=== PATIENT | male | born 1985 | race American Indian/Alaskan Native ===

== ENCOUNTER 2016-10-23 18:44 | Emergency (ER) | payer OTHER ==
[2016-10-23 19:35] VITALS: BP 117/68
[2016-10-23] MEDS ORDERED: MOTRIN PO ONE ×2 (20:35→20:38)
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
== END 2016-10-23 23:05 | disposition home or self-care (01) ==
LOC: ED 18:44
DX: S39.012A Strain of muscle, fascia and tendon of lower back, initial encounter (principal); V49.49XA Driver injured in collision with other motor vehicles in traffic accident, initial encounter; X58.XXXA Exposure to other specified factors, initial encounter; Y93.9 Activity, unspecified; Y92.9 Unspecified place or not applicable; Y99.9 Unspecified external cause status
CPT/HCPCS: 99282

== ENCOUNTER 2019-06-21 17:11 | Emergency (ER) | payer SELFPAY ==
[2019-06-21 17:43] LABS: Basophils % (Auto) 0.7 % (0.0-1.8); Eosinophils % (Auto) 0.5 % (0.0-4.3); Hematocrit 45.3 % (35.5-45.6); Hemoglobin 15.5 gm/dl (11.8-15.2); Lymphocytes # (Auto) 1.1 K/mm3 (1.2-5.4); Lymphocytes % (Auto) 19.4 % (13.4-35.0); Mean Corpuscular HGB Conc 34 % (32-34); Mean Corpuscular Volume 95 fl (84-94); Monocytes # (Auto) 0.3 K/mm3 (0.0-0.8); Monocytes % (Auto) 5.1 % (0.0-7.3); Platelet Count 198 K/mm3 (140-440); Red Blood Count 4.76 M/mm3 (3.65-5.03); Red Cell Distribution Width 12.7 % (13.2-15.2)
[2019-06-21 18:04] LABS: Alanine Aminotransferase 20 units/L (7-56); Albumin 4.6 g/dL (3.9-5); BUN/Creatinine Ratio 10; Blood Urea Nitrogen 8 mg/dL (9-20); Calcium 9.6 mg/dL (8.4-10.2); Hemolysis Index 34
[2019-06-21 18:27] LABS: Bilirubin,Urine NEG (Negative); Blood,Urine SM (Negative); Color,Urine Yellow (Yellow); Protein,Urine <15 mg/dL mg/dL (Negative); Urobilinogen,Urine < 2.0 mg/dL (<2.0)
[2019-06-21 18:36] LABS: WBC,Urine < 1.0 /HPF (0.0-6.0)
[2019-06-21] MEDS ORDERED: predniSONE 20 MG TAB PO ONE (21:23)
[2019-06-21] MEDS ORDERED: FAMOTIDINE 20 MG TAB PO ONE (21:23)
[2019-06-21] MEDS ORDERED: LIDOCAINE VISCOUS 2% 15 ML ORAL LIQD PO ONE (21:23)
[2019-06-21] MEDS ORDERED: ALUM-MAG HYDROXIDE-SIMETHICONE 200-200-20MG/5ML ORAL LIQD 30 ML PO ONE (21:23)
--- NOTE | 2019-06-21 21:45 | Emergency Department Report ---
ED General Adult HPI - General Chief complaint: Abdominal Pain Stated complaint: CHEST PAIN Source: patient Mode of arrival: Ambulatory Limitations: No Limitations - History of Present Illness Initial comments: Patient is 34-year-old -[place] male with no past medical history who presents to the ED with complaint of acute onset persistent nasal and sinus congestion, sneezing, mild epigastric discomfort, mild dry cough and mild sore throat for the last 1 week. Patient denies fever, chills, nausea, vomiting, diarrhea, abdominal pain, dysuria, urinary frequency and urgency, chest pain or shortness of breath or change in vision. MD Complaint: Sneezing; cough, nasal and sinus congestion; epigastric discomfort -: Sudden, week(s) (1) Location: face, abdomen Radiation: non-radiation Severity scale (0 -10): 1 Quality: aching, dull Consistency: intermittent Improves with: none Worsens with: none Associated Symptoms: denies other symptoms, cough, loss of appetite. denies: confusion, chest pain, diaphoresis, fever/chills, headaches, malaise, nausea/vomiting, rash, shortness of breath, syncope, weakness, other Treatments Prior to Arrival: none - Related Data Previous Rx's Medication Instructions Recorded Last Taken Type Cyclobenzaprine [Flexeril] 10 mg PO TID PRN #30 tablet 10/23/16 Unknown Rx Naproxen [Naprosyn TAB] 500 mg PO BID PRN #30 tablet 10/23/16 Unknown Rx Benzonatate [Tessalon Perles] 100 mg PO Q8HR #30 capsule 06/21/19 Unknown Rx Cetirizine HCl [Zyrtec 10mg tab] 10 mg PO DAILY #30 tablet 06/21/19 Unknown Rx Famotidine [Pepcid] 20 mg PO Q12H #60 tablet 06/21/19 Unknown Rx Fluticasone [Flonase] 1 spray NS QDAY #1 bottle 06/21/19 Unknown Rx Allergies Allergy/AdvReac Type Severity Reaction Status Date / Time No Known Allergies Allergy Verified 10/23/16 19:11 ED Review of Systems ROS: Stated complaint: CHEST PAIN Other details as noted in HPI Constitutional: denies: chills, fever Eyes: denies: eye pain, eye discharge, vision change ENT: congestion. denies: ear pain, throat pain Respiratory: cough. denies: shortness of breath, wheezing Cardiovascular: denies: chest pain, palpitations Endocrine: no symptoms reported Gastrointestinal: abdominal pain (epigastric discomfort). denies: nausea, vomiting, diarrhea Genitourinary: denies: urgency, dysuria, frequency, testicular pain, testicular mass Musculoskeletal: denies: back pain, joint swelling, arthralgia Skin: denies: rash, lesions Neurological: denies: headache, weakness, paresthesias Psychiatric: denies: anxiety, depression Hematological/Lymphatic: denies: easy bleeding, easy bruising ED Past Medical Hx - Past Medical History Previous Medical History?: No - Surgical History Past Surgical History?: No - Social History Smoking Status: Never Smoker Substance Use Type: None - Medications Home Medications: Home Medications Medication Instructions Recorded Confirmed Last Taken Type Cyclobenzaprine [Flexeril] 10 mg PO TID PRN #30 tablet 10/23/16 Unknown Rx Naproxen [Naprosyn TAB] 500 mg PO BID PRN #30 tablet 10/23/16 Unknown Rx Benzonatate [Tessalon Perles] 100 mg PO Q8HR #30 capsule 06/21/19 Unknown Rx Cetirizine HCl [Zyrtec 10mg tab] 10 mg PO DAILY #30 tablet 06/21/19 Unknown Rx Famotidine [Pepcid] 20 mg PO Q12H #60 tablet 06/21/19 Unknown Rx Fluticasone [Flonase] 1 spray NS QDAY #1 bottle 06/21/19 Unknown Rx ED Physical Exam - General Limitations: No Limitations General appearance: alert, in no apparent distress - Head Head exam: Present: atraumatic, normocephalic, normal inspection - Eye Eye exam: Present: normal appearance, PERRL, EOMI Pupils: Present: normal accommodation - ENT ENT exam: Present: normal orophraynx, mucous membranes moist, TM's normal bilaterally, normal external ear exam, other (Grossly congested nasal passages) - Neck Neck exam: Present: normal inspection, full ROM. Absent: tenderness, l ymphadenopathy - Respiratory Respiratory exam: Present: normal lung sounds bilaterally. Absent: respiratory distress, wheezes, rales, rhonchi, stridor, chest wall tenderness, accessory muscle use - Cardiovascular Cardiovascular Exam: Present: normal rhythm, tachycardia, normal heart sounds. Absent: systolic murmur, diastolic murmur, rubs, gallop - GI/Abdominal GI/Abdominal exam: Present: soft, normal bowel sounds. Absent: tenderness, guarding, rebound, hyperactive bowel sounds - Extremities Exam Extremities exam: Present: normal inspection, full ROM, normal capillary refill - Back Exam Back exam: Present: normal inspection, full ROM. Absent: tenderness, CVA tenderness (R), muscle spasm, paraspinal tenderness - Neurological Exam Neurological exam: Present: alert, oriented X3, CN II-XII intact, normal gait, reflexes normal - Psychiatric Psychiatric exam: Present: normal affect, normal mood - Skin Skin exam: Present: warm, dry, intact, normal color. Absent: rash ED Course Vital Signs 06/21/19 17:19 Temperature 98 F Pulse Rate 105 H Respiratory 18 Rate Blood Pressure 133/59 O2 Sat by Pulse 99 Oximetry ED Medical Decision Making - Lab Data Result diagrams: 06/21/19 17:30 06/21/19 17:30 - Medical Decision Making This is a 34-year-old male who presented to the ED with nasal and sinus congestion, sneezing, mild dry cough sore throat and epigastric discomfort. In the ED, patient is alert and oriented x3 and is not in any distress but tachycardic and afebrile in triage. Lab test results were reviewed and are all nonactionable. Patient was treated with GI cocktail in the ED, also given Pepcid. On reevaluation, patient felt better and was discharged home on medications and advised follow-up with his primary care physician in 5 to 7 days for reevaluation or return to the ED immediately if symptoms get worse. - Differential Diagnosis Sinusitis; URI; GERD; Bronchitis Critical care attestation.: If time is entered above; I have spent that time in minutes in the direct care of this critically ill patient, excluding procedure time. ED Disposition Clinical Impression: Acute upper respiratory infection GERD (gastroesophageal reflux disease) Qualifiers: Esophagitis presence: without esophagitis Qualified Code(s): K21.9 - Gastro- esophageal reflux disease without esophagitis Acute bronchitis Qualifiers: Bronchitis organism: other organism Qualified Code(s): J20.8 - Acute bronchitis due to other specified organisms Disposition: - TO HOME OR SELFCARE Is pt being admited?: No Does the pt Need Aspirin: No Condition: Stable Instructions: Acute Bronchitis (ED), Upper Respiratory Infection (ED) Additional Instructions: Take medication with food, drink plenty of fluids and follow-up with your primary care physician in 7 to 10 days for reevaluation. Return to the ED immediately if symptoms get worse. Prescriptions: Fluticasone [Flonase] 1 spray NS QDAY #1 bottle Famotidine [Pepcid] 20 mg PO Q12H #60 tablet Benzonatate [Tessalon Perles] 100 mg PO Q8HR #30 capsule Cetirizine HCl [Zyrtec 10mg tab] 10 mg PO DAILY #30 tablet Referrals: [facility] [place] [facility] [place] - 7-10 days Time of Disposition: 21:55 Print Language: COMORAN
[2019-06-21 22:30] VITALS: BP 123/61
== END 2019-06-21 22:33 | disposition home or self-care (01) ==
LOC: ED 17:11
DX: J06.9 Acute upper respiratory infection, unspecified (principal); J20.9 Acute bronchitis, unspecified; K21.9 Gastro-esophageal reflux disease without esophagitis; Z79.899 Other long term (current) drug therapy
CPT/HCPCS: 36415; 80053; 81001; 85025; 99283; J7512

== ENCOUNTER 2019-06-28 12:53 | Emergency (ER) | payer SELFPAY ==
[2019-06-28 13:02] VITALS: BP 125/73
--- NOTE | 2019-06-28 14:52 | Emergency Department Report ---
Chief Complaint: Chest Pain Stated Complaint: CHEST PAIN Time Seen by Provider: 06/28/19 14:16 - HPI History of Present Illness: 34-year-old male presents to the emergency room for chest discomfort. Patient was recently seen here on 06/21/2019 diagnosed with GERD and upper respiratory infection. Patient was placed on antibiotics famotidine Flonase Tessalon Perles. Patient reports that he went to [facility] and was evaluated and they told him he had no problems. Patient does admit to eating spicy foods and states that when he bends down his food will come up. Patient states his chest discomfort is intermittent and mostly after he eats. Patient has a past medical history of GERD. - Exam Vital Signs: Vital Signs 06/28/19 12:59 Temperature 98.3 F Pulse Rate 78 Respiratory 16 Rate Blood Pressure 125/73 O2 Sat by Pulse 100 Oximetry Physical Exam: Gen: alert oriented NAD Cardic: regular rate and rhythm no murmurs appreciated Resp: Clear to auscultation bilateral no wheezing no rales or rhonchi. Abdomen: Soft nontender nondistended normal bowel sounds. MSE screening note: Focused history and physical exam performed. Due to findings the following was ordered: 34-year-old male presents to the emergency room for chest discomfort. Patient was recently seen here on 06/21/2019 diagnosed with GERD and upper re spiratory infection. Patient was placed on antibiotics famotidine Flonase Tessalon Perles. Patient reports that he went to [facility] and was evaluated and they told him he had no problems. Patient does admit to eating spicy foods and states that when he bends down his food will come up. Patient states his chest discomfort is intermittent and mostly after he eats. Patient has a past medical history of GERD. Recommend patient to take [id number] omeprazole daily and 30 minutes prior to his first meal as well as famotidine 20 mg [id number] twice a day 30 minutes prior to his first and last meal. Also discussed with patient that he should not lay down for 2 to 3 hours after he eats. Discussed with patient is to avoid spicy greasy foods. I discussed with patient he can follow-up with a batch trucker. Patient verbalized understanding ED Disposition for MSE Clinical Impression: GERD (gastroesophageal reflux disease) Disposition: Z- MED SCREENING EXAM-LEFT Condition: Stable Instructions: Gastroesophageal Reflux Disease (ED), Diet for Ulcers and Gastritis (ED) Additional Instructions: Recommend patient to take [id number] omeprazole daily and 30 minutes prior to his first meal as well as famotidine 20 mg [id number]-tuzedkl twice a day 30 minutes prior to his first and last meal. Also discussed with patient that he should not lay down for 2 to 3 hours after he eats. Discussed with patient is to avoid spicy greasy foods. I discussed with patient he can follow-up with a batch trucker. Patient verbalized understanding Referrals: PRIMARY CARE, [Primary Care Provider] - 3-5 Days [facility] [Provider Group] - 3-5 Days
== END 2019-06-28 15:58 | disposition left against medical advice (07) ==
LOC: ED 12:53
DX: K21.9 Gastro-esophageal reflux disease without esophagitis (principal)
CPT/HCPCS: 99282

== ENCOUNTER 2019-07-02 16:05 | Emergency (ER) | payer SELFPAY ==
[2019-07-02 16:12] VITALS: BP 121/81
[2019-07-02] MEDS ORDERED: FAMOTIDINE 20 MG TAB PO ONE (16:35)
[2019-07-02] MEDS ORDERED: DICYCLOMINE 20 MG TAB PO ONE (16:35)
[2019-07-02 16:53] LABS: Basophils % (Auto) 0.6 % (0.0-1.8); Eosinophils % (Auto) 0.6 % (0.0-4.3); Hematocrit 44.8 % (35.5-45.6); Hemoglobin 15.3 gm/dl (11.8-15.2); Lymphocytes % (Auto) 25.5 % (13.4-35.0); Mean Corpuscular HGB Conc 34 % (32-34); Mean Corpuscular Volume 95 fl (84-94); Monocytes # (Auto) 0.2 K/mm3 (0.0-0.8); Monocytes % (Auto) 4.5 % (0.0-7.3); Platelet Count 211 K/mm3 (140-440); Red Blood Count 4.72 M/mm3 (3.65-5.03); Red Cell Distribution Width 12.9 % (13.2-15.2)
[2019-07-02 17:17] LABS: BUN/Creatinine Ratio 13; Blood Urea Nitrogen 12 mg/dL (9-20); Calcium 9.6 mg/dL (8.4-10.2); Hemolysis Index 159
--- NOTE | 2019-07-02 17:24 | XRay Report ---
CHEST 2 VIEWS INDICATION / CLINICAL INFORMATION: cp. COMPARISON: None available. FINDINGS: SUPPORT DEVICES: None. HEART / MEDIASTINUM: No significant abnormality. LUNGS / PLEURA: No significant pulmonary or pleural abnormality. No pneumothorax. ADDITIONAL FINDINGS: No significant additional findings. IMPRESSION: 1. No acute findings. Signer Name: Coleman Chisholm MD Signed: 07/02/2019 5:20 PM Workstation Name: [id number]
--- NOTE | 2019-07-02 17:47 | Emergency Department Report ---
ED Chest Pain HPI - General Chief Complaint: Abdominal Pain Stated Complaint: HEART BURN Time Seen by Provider: 07/02/19 16:26 Source: patient Mode of arrival: Ambulatory Limitations: No Limitations - History of Present Illness Initial Comments: This is a 34-year-old male nontoxic, well nourished in appearance, no acute signs of distress presents to the ED with c/o of acute on chronic intermittent midsternum chest burning sensation x3 weeks. Patient has been seen in [facility] and stated that he had a full cardiac workup that was within normal limits. Patient denies any radiation of pain. Patient describes pain as burning sensation intermittently. Patient denies any upper respiratory symptoms. Patient denies any shortness of breath, hemoptysis, fever, chills, nausea, vomiting, headache, stiff neck, numbness, tingling, abdominal pain. Patient denies pleuritic chest pain. Patient denies any recent travels or long car rides. Patient denies any recent surgeries or any sick contacts. Patient denies any drug allergies. MD Complaint: other (midsternum chest burning) -: week(s) Pain Location: epigastric Pain Radiation: none Severity: mild Severity scale (0 -10): 3 Quality: other (burning) Consistency: intermittent Improves With: nothing Worsens With: nothing re: denies: nausea, vomting, diaphoresis, dyspnea, sense of impending doom Other Symptoms: denies: cough, fever, syncope, rash, acid taste in mouth, leg swelling, palpitations, burping Treatments Prior to Arrival: none Aspirin use within the Past 7 Days: (0) No - Related Data On Oral Contraceptives: No Previous Rx's Medication Instructions Recorded Last Taken Type Cyclobenzaprine [Flexeril] 10 mg PO TID PRN #30 tablet 10/23/16 Unknown Rx Naproxen [Naprosyn TAB] 500 mg PO BID PRN #30 tablet 10/23/16 Unknown Rx Benzonatate [Tessalon Perles] 100 mg PO Q8HR #30 capsule 06/21/19 Unknown Rx Cetirizine HCl [Zyrtec 10mg tab] 10 mg PO DAILY #30 tablet 06/21/19 Unknown Rx Famotidine [Pepcid] 20 mg PO Q12H #60 tablet 06/21/19 Unknown Rx Fluticasone [Flonase] 1 spray NS QDAY #1 bottle 06/21/19 Unknown Rx Omeprazole 40 mg PO DAILY #10 capsule. 07/02/19 Unknown Rx Allergies Allergy/AdvReac Type Severity Reaction Status Date / Time No Known Allergies Allergy Verified 10/23/16 19:11 Heart Score - HEART Score History: Slightly suspicious EKG: Normal Age: < 45 Risk factors: No known risk factors Troponin: < normal limit HEART Score: 0 ED Review of Systems ROS: Stated complaint: HEART BURN Other details as noted in HPI Constitutional: denies: chills, fever Eyes: denies: eye pain, eye discharge, vision change ENT: denies: ear pain, throat pain Respiratory: denies: cough, shortness of breath, wheezing Cardiovascular: chest pain. denies: palpitations Endocrine: no symptoms reported Gastrointestinal: denies: abdominal pain, nausea, diarrhea Genitourinary: denies: urgency, dysuria Musculoskeletal: denies: back pain, joint swelling, arthralgia Skin: denies: rash, lesions Neurological: denies: headache, weakness, paresthesias Psychiatric: denies: anxiety, depression Hematological/Lymphatic: denies: easy bleeding, easy bruising ED Past Medical Hx - Past Medical History Hx GERD: Yes - Social History Smoking Status: Never Smoker Substance Use Type: None - Medications Home Medications: Home Medications Medication Instructions Recorded Confirmed Last Taken Type Cyclobenzaprine [Flexeril] 10 mg PO TID PRN #30 tablet 10/23/16 Unknown Rx Naproxen [Naprosyn TAB] 500 mg PO BID PRN #30 tablet 10/23/16 Unknown Rx Benzonatate [Tessalon Perles] 100 mg PO Q8HR #30 capsule 06/21/19 Unknown Rx Cetirizine HCl [Zyrtec 10mg tab] 10 mg PO DAILY #30 tablet 06/21/19 Unknown Rx Famotidine [Pepcid] 20 mg PO Q12H #60 tablet 06/21/19 Unknown Rx Fluticasone [Flonase] 1 spray NS QDAY #1 bottle 06/21/19 Unknown Rx Omeprazole 40 mg PO DAILY #10 capsule. 07/02/19 Unknown Rx ED Physical Exam - General Limitations: No Limitations General appearance: alert, in no apparent distress - Head Head exam: Present: atraumatic, normocephalic - Eye Eye exam: Present: normal appearance - Neck Neck exam: Present: normal inspection, full ROM. Absent: tenderness, meningismus, lymphadenopathy - Respiratory Respiratory exam: Present: normal lung sounds bilaterally. Absent: respiratory distress, wheezes, rales, rhonchi, stridor, chest wall tenderness, accessory muscle use, decreased breath sounds, prolonged expiratory - Cardiovascular Cardiovascular Exam: Present: regular rate, normal rhythm, normal heart sounds. Absent: irregular rhythm, systolic murmur, diastolic murmur, rubs, gallop - GI/Abdominal GI/Abdominal exam: Present: soft, normal bowel sounds. Absent: distended, tenderness, guarding, rebound, rigid, diminished bowel sounds - Extremities Exam Extremities exam: Present: normal inspection, full ROM - Back Exam Back exam: Present: normal inspection, full ROM - Neurological Exam Neurological exam: Present: alert, oriented X3, normal gait - Psychiatric Psychiatric exam: Present: normal affect, normal mood - Skin Skin exam: Present: warm, dry, intact, normal color. Absent: rash ED Course Vital Signs 07/02/19 16:06 Temperature 98.3 F Pulse Rate 98 H Respiratory 18 Rate Blood Pressure 121/81 O2 Sat by Pulse 100 Oximetry - Reevaluation(s) Reevaluation #1: 07/02/19 17:45 Patient is speaking in full sentences with no signs of distress noted. KOLBY score - Kolby Score Age > 65: (0) No Aspirin use within the Past 7 Days: (0) No 3 or more CAD Risk Factors: (0) No 2 or more Angina events in past 24 hrs: (0) No Known CAD with more than 50% Stenosis: (0) No Elevated Cardiac Markers: (0) No ST Deviation Greater than 0.5mm: (0) No KOLBY Score: 0 ED Medical Decision Making - Lab Data Result diagrams: 07/02/19 16:38 07/02/19 16:38 - Medical Decision Making This is a 34-year-old male that presents with GERD symptoms. Patient is stable and was examined by me. KOLBY and HEART score 0 pints. Wells criteria for DVT/SVT/PE 0 points. EKG normal sinus rhythm with no significant changes in ST. Chest xray dictated by the radiologist. PAtient is notified of the Xray report with no questions noted. Labs within normal limits. Negative troponin. Patient received Bentyl and Pepcid in the ED which he stated his symptoms are improving subsided. I will discharge patient with omeprazole. Patient was instructed to Follow-up with a primary care/molding machine operator helper doctor in 2 days or if symptoms worsen and continue return to emergency room as soon as possible. At time of discharge, the patient does not seem toxic or ill in appearance. No acute signs of distress noted. Patient agrees to discharge treatment plan of care. No further questions noted by the patient. Critical care attestation.: If time is entered above; I have spent that time in minutes in the direct care of this critically ill patient, excluding procedure time. ED Disposition Clinical Impression: Atypical chest pain GERD (gastroesophageal reflux disease) Qualifiers: Esophagitis presence: esophagitis presence not specified Qualified Code(s): K 21.9 - Gastro-esophageal reflux disease without esophagitis Disposition: TO HOME OR SELFCARE Is pt being admited?: No Does the pt Need Aspirin: No Condition: Stable Instructions: Chest Pain (ED), Gastroesophageal Reflux Disease (ED) Additional Instructions: Follow-up with a primary care/molding machine operator helper doctor in 2 days or if symptoms worsen and continue return to emergency room as soon as possible. Prescriptions: Omeprazole 40 mg PO DAILY #10 capsule.dr Referrals: LILLIE MADRIGAL MD [Primary Care Provider] - 3-5 Days RAYMUNDO CORNELIUS MD [Staff Physician] - 3-5 Days [facility] [Provider Group] - 3-5 Days DWIGHT WOODARD MD [Staff Physician] - 07/04/19 Forms: Work/School Release Form(ED)
== END 2019-07-02 18:30 | disposition home or self-care (01) ==
LOC: ED 16:05
DX: K21.9 Gastro-esophageal reflux disease without esophagitis (principal); R07.89 Other chest pain; Z79.899 Other long term (current) drug therapy
CPT/HCPCS: 36415; 71046; 80048; 84484; 85025; 93005; 93010

== ENCOUNTER 2020-10-05 22:59 | Emergency (ER) | payer OTHER ==
[2020-10-05] MEDS ORDERED: IBUPROFEN 600 MG TAB PO ONE (23:42)
[2020-10-05] MEDS ORDERED: ACETAMINOPHEN 500 MG TAB PO ONE (23:42)
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
[2020-10-06 02:03] VITALS: BP 122/62
== END 2020-10-06 02:05 | disposition home or self-care (01) ==
LOC: ED 22:59
DX: M62.838 Other muscle spasm (principal); M54.2 Cervicalgia; M62.830 Muscle spasm of back; M54.5 Low back pain; K21.9 Gastro-esophageal reflux disease without esophagitis; Z98.890 Other specified postprocedural states; V89.2XXA Person injured in unspecified motor-vehicle accident, traffic, initial encounter; Y93.89 Activity, other specified; Y92.488 Other paved roadways as the place of occurrence of the external cause; Y99.8 Other external cause status
CPT/HCPCS: 72040; 72100; 99283